=== PATIENT | male | born 1980 | race Caucasian/White ===

== ENCOUNTER 2020-07-16 03:32 | Outpatient (CLI) | payer MEDICAID, SELFPAY ==
--- NOTE | 2020-07-16 08:15 | RT.EKG_ITS ---
APPROVED REPORT Exam: Resting ECG Reason for Exam: High Risk Medication Patient Location: O HR:69 bpm ECG Measurements Heart Rate 69 AXIS [place] 143 P 57 QRSd 96 QRS 67 QT 410 T 42 QTc 439 Conclusion Sinus rhythm...normal P axis, V-rate 60- 99. Early repol pattern
== END 2020-07-16 03:33 | disposition home or self-care (01) ==
LOC: RT 03:32
PROVIDERS: PCP Internal Medicine; Visit Provider Family Medicine
DX: Z79.899 Other long term (current) drug therapy (principal)
CPT/HCPCS: 93005; 93010

== ENCOUNTER 2020-10-08 04:10 | Outpatient (CLI) | payer MEDICAID, SELFPAY ==
--- NOTE | 2020-10-08 09:30 | RT.EKG_ITS ---
APPROVED REPORT Exam: Resting ECG Reason for Exam: HIGH RISK MEDICATION Patient Location: O HR:70 bpm ECG Measurements Heart Rate 70 AXIS [place] 133 P 41 QRSd 96 QRS 46 QT 405 T 26 QTc 440 Conclusion Sinus rhythm...normal P axis, V-rate 60- 99 Ventricular premature complex...V complex w/ short R-R interval
== END 2020-10-08 04:11 | disposition home or self-care (01) ==
LOC: RT 04:10
PROVIDERS: PCP Internal Medicine; Visit Provider Family Medicine
DX: Z79.899 Other long term (current) drug therapy (principal); I49.3 Ventricular premature depolarization
CPT/HCPCS: 93005; 93010

== ENCOUNTER 2022-12-03 13:38 | Outpatient (REF) | payer MEDICAID, SELFPAY | END 2022-12-03 13:39 | disposition home or self-care (01) | LOC: LBN 13:38 | PROVIDERS: PCP Internal Medicine; Visit Provider Physician Assistant Medical | DX: L03.818 Cellulitis of other sites (principal) | CPT/HCPCS: 87070; 87205 ==

== ENCOUNTER 2023-09-05 16:22 | Emergency (ER) | payer MEDICAID, SELFPAY ==
[2023-09-05] VITALS (9 sets, daily range): BP systolic 143–190; BP diastolic 86–100; PULSE 64–86; RESP 8–198; TEMP 36.5–37.1; O2SAT 95–99
--- NOTE | 2023-09-05 16:15 | RT.EKG_ITS ---
APPROVED REPORT Exam: Resting ECG Reason for Exam: SOB Patient Location: E HR:87 bpm ECG Measurements Heart Rate 87 AXIS [place] 129 P 57 QRSd 89 QRS 70 QT 391 T 45 QTc 470 Conclusion Sinus rhythm 87 +PVCS
[2023-09-05] MEDS: Normal Saline 1,000 ML 1000 ML IV (17:34)
[2023-09-05 17:38] LABS: Abs Immature Grans 0.01 10^3/uL (0.0-0.06); Absolute Basophil Count 0.06 10^3/uL (0.0-0.2); Absolute Eosinophil Count 0.16 10^3/uL (0.0-0.7); Absolute Lymphocyte Count 2.27 10^3/uL (1.2-3.4); Absolute Monocyte Count 0.58 10^3/uL (0.1-0.8); Absolute Neutrophil Count 3.29 10^3/uL (1.2-6.7); Basophils % 0.9 %; Eosinophils % 2.5 %; HCT 42.5 % (40.0-50.0); HGB 14.6 g/dL (13.5-17.5); Immature Grans % 0.2 %; Lymphocytes % 35.6 %; MCH 29.3 pg (27.0-33.0); MCHC 34.4 % (32.0-36.0); MCV 85 fL (80-95); MPV 9.5 fL (8.0-11.0); Monocytes % 9.1 %; Neutrophils % 51.7 %; Platelet Count 280 10^3/uL (130-400); RBC 4.99 10^6/uL (4.36-5.78); RDW 13.1 % (11.8-14.1); RDW-SD 40.4 fL; WBC 6.37 10^3/uL (4.4-10.8)
[2023-09-05 17:56] LABS: ALT 33 U/L (16-63); AST 19 U/L (15-37); Albumin 3.8 g/dL (3.4-5.0); Alkaline Phosphatase 72 U/L (46-116); Anion Gap 5.4 mmol/L (3-11); BUN 17 mg/dL (7-18); Bilirubin, Total 0.34 mg/dL (0.2-1.0); CO2 31.6 mmol/L (21.0-32.0); Calcium 9.2 mg/dL (8.5-10.1); Chloride 102 mmol/L (98-107); Estimated GFR 96.97 (mL/min/1.73m2); Glucose 99 mg/dL (74-106); Magnesium 1.9 mg/dL (1.8-2.4); Potassium 4.2 mmol/L (3.5-5.1); Sodium 139 mmol/L (136-145); Total Protein 7.2 g/dL (6.4-8.2); Troponin I < 50 ng/L (< or =60)
[2023-09-05 18:02] LABS: Creatine Kinase 184 U/L (39-308); NT-proBNP 31 pg/mL (<300)
--- NOTE | 2023-09-05 18:45 | RT.EKG_ITS ---
APPROVED REPORT Exam: Resting ECG Reason for Exam: SOB Patient Location: E HR:68 bpm ECG Measurements Heart Rate 68 AXIS [place] 147 P 55 QRSd 91 QRS 70 QT 412 T 47 QTc 440 Conclusion Sinus rhythm 68 no stemi
[2023-09-05 18:51] LABS: Bilirubin Negative (Negative); Blood Negative (Negative); Clarity Clear (Clear); Glucose Negative (Negative); Ketones Trace mg/dL (Negative); Leukocyte Esterase Negative (Negative); Nitrite Negative (Negative); pH 6.5 (5-8)
[2023-09-05 19:05] LABS: *AMPHETAMINES SCREEN URINE Negative (Negative); *BARBITURATES SCREEN URINE Negative (Negative); *BENZODIAZEPINES SCREEN URINE Negative (Negative); Cannabinoids THC Positive (Negative); Cocaine Screen,Urine Positive (Negative); METHADONE URINE SCREEN Negative (Negative); OPIATES URINE SCREEN Negative (Negative)
[2023-09-05 19:10] LABS: Tricyclic Antidepressants Negative (Negative)
--- NOTE | 2023-09-05 20:51 | ED.GENADUL_ITS ---
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 Limitations to Documentation: no limitations . Information obtained by: patient . HPI Narrative: 43-year-old gentleman without known past medical history presents for evaluation of shortness of breath. The patient reports that he has been working outside on a roof all week and has been very hot. He states that he gets some shortness of breath. No chest pain. He states that he has also been having some intermittent vomiting. He reports that the symptoms seem to occur at nighttime. No exacerbating or relieving factors. He denies that he gets short of breath or has chest pain while he is doing exertional activity. He does smoke. Denies any history of heart or lung problems. Denies any drug or alcohol use. Related Data Home Medications Medication Instructions Recorded Confirmed Unknown [No Known Home Meds] 09/05/23 09/05/23 Allergies Allergy/AdvReac Type Severity Reaction Status Date / Time No Known Allergies Allergy Unverified 09/05/23 16:27 General Stated Complaint: SOB JULEE: 3 Exam Narrative Exam Narrative: Review of Systems: All systems reviewed & are unremarkable except as noted in HPI and below Well-developed, no acute distress NCAT PERRL, normal conjunctiva Dry mucous membranes RRR, no murmur hypertensive Unlabored respiratory effort clear bilaterally not tachypneic not hypoxic Nondistended abdomen Extremities w/o deformity, no cyanosis, no edema Sunburn on back noted no focal neurologic deficits Appropriate mood and affect Course Vital Signs Vital signs: Vital Signs Temperature 36.5 C 09/05/23 16:24 Pulse 86 09/05/23 16:24 Respiratory Rate 18 09/05/23 16:24 Blood Pressure 190/100 H 09/05/23 16:24 Pulse Oximetry 99 09/05/23 16:24 Temperature 37.0 C 09/05/23 18:43 Temperature Source Tympanic 09/05/23 18:43 Pulse 64 09/05/23 19:37 Pulse 75 09/05/23 17:16 Respiratory Rate 18 09/05/23 19:37 Respiratory Effort Normal, Non-Labored 09/05/23 17:05 Respiratory Depth Normal 09/05/23 17:05 Respiratory Pattern Normal 09/05/23 17:05 Blood Pressure 156/88 H 09/05/23 19:37 Blood Pressure Mean 105 09/05/23 19:20 Blood Pressure Position Supine 09/05/23 17:10 Pulse Oximetry 97 09/05/23 19:37 Oxygen Delivery Method Room Air 09/05/23 18:43 Oxygen Flow Rate 0 09/05/23 18:43 Pain Level 0 09/05/23 19:37 Lab/Test Results Lab/Test Results: Laboratory Tests Range/Units 09/05/23 09/05/23 17:30 18:30 WBC (4.4-10.8) 10^3/uL 6.37 RBC (4.36-5.78) 10^6/uL 4.99 Hgb (13.5-17.5) g/dL 14.6 Hct (40.0-50.0) % 42.5 MCV (80-95) fL 85 MCH (27.0-33.0) pg 29.3 MCHC (32.0-36.0) % 34.4 RDW (11.8-14.1) % 13.1 Plt Count (130-400) 10^3/uL 280 MPV (8.0-11.0) fL 9.5 Immature Gran % % 0.2 Neutrophils % % 51.7 Lymphocytes % % 35.6 Monocytes % % 9.1 Eosinophils % % 2.5 Basophils % % 0.9 Nucleated RBC % (0.0-0.3) % 0.0 Absolute Neutrophils (1.2-6.7) 10^3/uL 3.29 Absolute Lymphocytes (1.2-3.4) 10^3/uL 2.27 Absolute Monocytes (0.1-0.8) 10^3/uL 0.58 Absolute Eosinophils (0.0-0.7) 10^3/uL 0.16 Absolute Basophils (0.0-0.2) 10^3/uL 0.06 Sodium (136-145) mmol/L 139 Potassium (3.5-5.1) mmol/L 4.2 Chloride (98-107) mmol/L 102 Carbon Dioxide (21.0-32.0) mmol/L 31.6 Anion Gap (3-11) mmol/L 5.4 BUN (7-18) mg/dL 17 Creatinine (0.70-1.30) mg/dL 1.0 Est GFR (CKD-EPI 2020) (mL/min/1.73m2) 96.97 Glucose (74-106) mg/dL 99 Calcium (8.5-10.1) mg/dL 9.2 Magnesium (1.8-2.4) mg/dL 1.9 Total Bilirubin (0.2-1.0) mg/dL 0.34 AST (15-37) U/L 19 ALT (16-63) U/L 33 Alkaline Phosphatase (46-116) U/L 72 Creatine Kinase (39-308) U/L 184 Troponin I (< or =60) ng/L < 50 NT-Pro-B Natriuret Pep (<300) pg/mL 31 Total Protein (6.4-8.2) g/dL 7.2 Albumin (3.4-5.0) g/dL 3.8 Urine Color (Yellow) Yellow Urine Clarity (Clear) Clear Urine pH (5-8) 6.5 Ur Specific Benedict (1.005-1.025) 1.020 Urine Protein (Neg-Trace) mg/dL Trace Urine Ketones (Negative) mg/dL Trace H Urine Blood (Negative) Negative Urine Nitrite (Negative) Negative Urine Bilirubin (Negative) Negative Urine Urobilinogen (Up to 0.2) mg/dL 1.0 H Ur Leukocyte Esterase (Negative) Negative Urine Glucose (Negative) mg/dL Negative Urine Opiates Screen (Negative) Negative Urine Methadone Screen (Negative) Negative Ur Barbiturates Screen (Negative) Negative Ur Tricyclics Screen (Negative) Negative Ur Amphetamines Screen (Negative) Negative U Benzodiazepines Scrn (Negative) Negative Urine Cocaine Screen (Negative) Positive A Ur THC Screen (Negative) Positive A Medical Decision Making Emergent evaluation of shortness of breath. Patient reports that he has been having significant heat exposure this week. On arrival, he is hypertensive but otherwise hemodynamically stable with no signs of respiratory distress. He is EKG does demonstrate significant amount of PVCs. He seems to be asymptomatic from these. Though his symptoms may be shortness of breath. Plan for telemetry monitoring and lab work, will give fluid resuscitation due to likely dehydration from outdoor activity and will reassess. Lab work reviewed. No anemia, no leukocytosis. Platelet count is normal. Electrolytes without derangement. Renal function is normal. His cardiac biomarkers are unremarkable. His urinalysis does reveal trace ketones and he has been resuscitated with IV fluids. His drug screen is positive for cocaine and THC. I suspect that the cocaine may have something to do with his PVCs or his concerns of shortness of breath. The patient is feeling much better after IV fluid resuscitation. He has no shortness of breath here, no concerning examination findings and at this time he is discharged in good condition. It is recommended that he follow-up with PCP for recheck of his blood pressure which is noted to be elevated here. Return precautions advised, discharged in good condition. Medical Records Medical records reviewed: Yes I reviewed the patient's medical records. Lab Data Lab results reviewed: Yes I reviewed the patient's lab results. Quality:SDOH Health Related Social Needs: No Data to Display [facility] All Active Problems Heat exposure (Acute) Elevated blood pressure reading (Acute) Acute dehydration (Acute) Asymptomatic PVCs (Acute) Social History Smoking/Tobacco Use Status: Current every day Tobacco Type: cigarettes Smoking risk assessment performed?: Yes Alcohol Intake: never Drug use: Occasionally Substance use type: marijuana Housing: apartment Do you feel safe in your relationship?: Yes
== END 2023-09-05 20:51 | disposition home or self-care (01) ==
PROVIDERS: Emergency Provider Emergency Medicine; PCP Nurse Practitioner Family
DX: I49.3 Ventricular premature depolarization (principal); E86.0 Dehydration; R03.0 Elevated blood-pressure reading, without diagnosis of hypertension; F17.210 Nicotine dependence, cigarettes, uncomplicated
CPT/HCPCS: 36415; 80053; 80307; 82550; 93005; 99284; 81003; 83735; 83880; 84484; 85025; 93010; 99283

== ENCOUNTER 2024-01-19 01:36 | Outpatient (CLI) | payer MEDICAID, SELFPAY ==
--- NOTE | 2024-01-19 08:54 | DI.CT_ITS ---
Exam(s) CT LOWER EXTREMITY LT WO EXAM: CT LOWER EXTREMITY LT WO CLINICAL HISTORY: Abnl growth, lt ankle. TECHNIQUE: Imaging Protocol: Axial computed tomography images with coronal and sagittal reformatted images were created and reviewed. CONTRAST MATERIAL: Intravenous: Omnipaque 350 Contrast volume:structured data in ml Contrast route:I V - Oral: yes / no COMPARISON: No exams were available for comparison FINDINGS: OSSEOUS: There are no fractures nor widening the ankle mortise. No degenerative cysts nor osteochondral defec t in the talar dome. No evidence of osseous tarsal coalition. Os trigonum is noted. SOFT TISSUES: On the medial aspect of the ankle there is subcutaneous and partially cutaneous density just superfic ial to the tibialis posterior tendon which measures approximately 5 x 4 mm and is immediately subjace nt to the skin marker above this level. Does not exhibit internal calcification. There does not hollie ear to be subjacent tenosynovitis in the posterior tibial tendon nor in the flexor digitorum longus t endon. IMPRESSION: 1. No significant osseous findings in the ankle 2. There is a superficially located 5 x 4 mm soft tissue nodule in the medial aspect of the ankle exa ctly corresponding to the palpable finding in this patient. The appearance is nonspecific on CT scan . Recommend follow-up MRI scan for added specificity. RADIATION DOSE DELIVERED: 88.62mGy.cm Total DLP DATA REPOSITORY: All CT scans at this facility are submitted to the National Radiology Data Registry (NRDR) Dose Index Registry (DIR) with the [employer] (A[employer]). RADIATION OPTIMIZATION: All CT scans at this facility use at least one of these dose optimization te chniques: automated exposure control; mA and/or kV adjustment per patient size (includes targeted exa ms where dose is matched to clinical indication); or iterative reconstruction.
== END 2024-01-19 01:56 ==
LOC: DI 01:37
PROVIDERS: PCP Nurse Practitioner Family; Visit Provider Nurse Practitioner Family
DX: M76.822 Posterior tibial tendinitis, left leg (principal)
CPT/HCPCS: 73700

== ENCOUNTER 2024-07-21 14:06 | Outpatient (CLI) | payer MEDICAID, SELFPAY ==
--- NOTE | 2024-07-21 14:00 | RT.EKG_ITS ---
APPROVED REPORT Exam: Resting ECG Reason for Exam: high risk medication use Patient Location: O HR:50 bpm ECG Measurements Heart Rate 50 AXIS [place] 147 P 75 QRSd 96 QRS 75 QT 569 T 61 QTc 519 Conclusion Sinus rhythm...normal P axis, V-rate 50- 99 Prolonged QT interval...QTc >500mS
== END 2024-07-21 14:07 | disposition home or self-care (01) ==
LOC: CARDOPNVT 14:06
PROVIDERS: PCP Nurse Practitioner Family; Visit Provider Family Medicine
DX: Z79.899 Other long term (current) drug therapy (principal)
CPT/HCPCS: 93005; 93010

== ENCOUNTER 2024-07-27 11:28 | Emergency (ER) | payer MEDICAID, SELFPAY ==
--- NOTE | 2024-07-27 11:30 | RT.EKG_ITS ---
APPROVED REPORT Exam: Resting ECG Reason for Exam: sent by JANA for EKG Patient Location: E HR:61 bpm ECG Measurements Heart Rate 61 AXIS [place] 143 P 61 QRSd 94 QRS 73 QT 447 T 56 QTc 450 Conclusion Sinus rhythm...normal P axis, V-rate 60- 99 No Occlusion MA
[2024-07-27 11:34] VITALS: BP 153/99; PULSE 72; RESP 20; TEMP 36.9; O2SAT 94
[2024-07-27 11:55] VITALS: BP 153/99; PULSE 72; RESP 20; TEMP 36.9; O2SAT 94
--- NOTE | 2024-07-28 12:43 | ED.GENADUL_ITS ---
Discharge Plan Disposition Patient Disposition: Home Discharge Details Clinical Impression: Methadone maintenance therapy patient, Abnormal ECG Primary Care Provider: Renetta Strange ED Provider: Yesica Pitts Home Meds and New Rx's Prescriptions: No Action No Known Home Meds Discharge Instructions Additional Instructions: EKG from last week was abnormal, that abnormality is no longer present Based on your EKG in the emergency department you are safe to continue receiving your methadone at time of this assessment please follow-up with them and have routine EKG monitoring at their discretion Referrals: Renetta Strange [Primary Care Provider] - 1 week Discharge Data Discharge Date/Time-TO BE ENTERED AT DEPARTURE: 07/27/24 11:57 HPI General Date/Time Provider Initiated Documentation: 07/27/24 11:40 . 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 Advised by methadone center to visit clinic today after receiving methadone dose. Related Data Home Medications ?Medication ?Instructions ?Recorded ?Confirmed Unknown [No Known Home Meds] 09/05/23 09/05/23 Allergies Allergy/AdvReac Type Severity Reaction Status Date / Time No Known Allergies Allergy Unverified 09/05/23 16:27 General Stated Complaint: Recheck JULEE: 3 Exam Narrative Exam Narrative: General Appearance: Alert, oriented, in no acute distress. Vital signs: Stable vitals. HEENT: Within normal limits. Respiratory: Within normal limits. Skin: Warm and dry, no rash. Neurological: Normal. Course Vital Signs Vital signs: Vital Signs Temperature 36.9 C 07/27/24 11:34 Pulse 72 07/27/24 11:34 Respiratory Rate 20 07/27/24 11:34 Blood Pressure 153/99 H 07/27/24 11:34 Pulse Oximetry 94 07/27/24 11:34 Temperature 36.9 C 07/27/24 11:55 Pulse 72 07/27/24 11:55 Respiratory Rate 20 07/27/24 11:55 Blood Pressure 153/99 H 07/27/24 11:55 Blood Pressure Position Sitting 07/27/24 11:34 Pulse Oximetry 94 07/27/24 11:55 Oxygen Delivery Method Room Air 07/27/24 11:34 Oxygen Flow Rate 0 07/27/24 11:34 Medical Decision Making EKG from Wednesday: QTc 560. EKG today: QTc 430-450. Initial Assessment: 44-year-old male with history of methadone dependence presents with report of abnormal EKG on Wednesday. Patient is alert, oriented, in no acute distress with stable vitals. ED Course: - Reviewed EKG from Wednesday: QTc prolongation at 560 - Repeat EKG today: QTc 430-450 - No indication to check labs or do any additional diagnostics - Patient discharged home - Encouraged to follow up with methadone clinic with routine EKGs per recommendations - Return precautions reviewed; patient expressed understanding Final Assessment: Reviewed EKGs showing QTc prolongation, no additional labs or diagnostics indicated, patient discharged with follow-up instructions. Clinical Impression: - Methadone dependence - QTc prolongation Disposition: - Discharge - Follow-Up: Follow up with methadone clinic for routine EKGs MDM Components Evaluation: - Number of Differential Diagnoses or Management Options: Methadone dependence, QTc prolongation - Amount and Complexity of Data Reviewed: EKG from Wednesday, repeat EKG today - Risk of Complication and Morbidity or Mortality: QTc prolongation risk managed with follow-up instructions Quality:SDOH Health Related Social Needs: No Data to Display PFSH All Active Problems (Updated 07/27/24 @ 11:51 by MOMO Fleming) Abnormal ECG (Acute) Methadone maintenance therapy patient (Acute) Social History Smoking/Tobacco Use Status: Current every day Tobacco Type: cigarettes Smoking risk assessment performed?: Yes Alcohol Intake: never Drug use: Occasionally Substance use type: marijuana Housing: apartment Do you feel safe in your relationship?: Yes PAWSS Have you Been Recently Intoxicated or Drunk Within the Last 30 days?: No Have you Ever Experienced Previous Episodes of Alcohol Withdrawal?: No Have you ever Experienced Withdrawal Seizures?: No Have you ever Experienced Delirium Tremens(DT)s?: No Have you ever undergone Alcohol Rehabilitation Treatment (i.e, inpt ot outpatient treatment programs)?: No Have you ever Experienced Blackouts?: No Have you ever Combined Alcohol with other Downers within the last 90 days?: No Have you ever Combined Alcohol with any other Substance of Abuse during the last 90 days?: No Positive Blood Alcohol level on Presentation? [PCS.BAL]: No Evidence of Increased Autonomic Activity (i.e. HR>120, tremor, sweating, agitation, nausea)?: No Result: 0
== END 2024-07-27 11:57 | disposition home or self-care (01) ==
PROVIDERS: Emergency Provider Physician Assistant; PCP Nurse Practitioner Family
DX: R94.31 Abnormal electrocardiogram [ECG] [EKG] (principal); R00.2 Palpitations; F11.20 Opioid dependence, uncomplicated; F17.210 Nicotine dependence, cigarettes, uncomplicated
CPT/HCPCS: 93005; 99283; 93010

== ENCOUNTER 2024-08-21 02:22 | Outpatient (CLI) | payer MEDICAID, SELFPAY ==
--- NOTE | 2024-08-21 | DI.MRI_ITS ---
Exam(s) MR LOWER JOINT LT WO EXAM: MR LOWER JOINT LT WO CLINICAL HISTORY: ABNL Growth, lt Ankle, CT done 01/18, TECHNIQUE: Multiplanar multisequence MRI was performed without intravenous contrast. COMPARISON: CT CT LOWER EXTREMITY LT WO from 01/19/2024 FINDINGS: The examination is limited due to patient motion artifact. BONES/JOINTS: No fracture or contusion pattern. No bone lesions identified. The talar dome is smooth. The ankle mortise is maintained. No joint effusion is present. LIGAMENTS: The tibiofibular and calcaneofibular ligaments are intact. The talofibular ligaments are intact. The deltoid ligament is intact. The syndesmosis is unremarkable. Sinus tarsi is normal. MUSCULOTENDINOUS STRUCTURES: Achilles tendon: Unremarkable. Plantar fascia: Unremarkable. Anterior Extensor tendons: Unremarkable. Posterior Tibialis: Unremarkable. Flexor Digitorum longus: Unremarkable. Flexor Hallucis longus: Unremarkable. Peroneus longus: Unremarkable. Peroneus brevis:Unremarkable. SOFT TISSUES: There is a 6 x 4 mm nodule medial to the medial malleolus corresponding to the palpable abnormality. (Series 9001, image 22). It is cutaneous/subcutaneous in location. It is independent of the underlying bone and musculotendinous structures. It is isointense to muscle on T1 weighted images and hyperintense on the T2 weighted images (series 7001, image 23). The soft tissues are otherwise unremarkable. OTHER FINDINGS: There is hyperintense signal seen posterior to the talus adjacent to the posterior talofibular ligament. There is normal signal seen within the os trigonum and the posterior talus. The fluid does surround the os trigonum. Os trigonum syndrome can be considered in the appropriate clinical setting and patient's symptoms. IMPRESSION: 1. 6 x 4 mm soft tissue nodule in the soft tissues medial to the medial malleolus. There is no associated abnormality with the adjacent musculotendinous structure or underlying bone. The finding has benign characteristics and may represent a small sebaceous cyst or other benign cystic lesion. DATA REPOSITORY:
== END 2024-08-21 02:42 ==
LOC: DI 02:22
PROVIDERS: PCP Nurse Practitioner Family; Visit Provider Nurse Practitioner Family
DX: M79.89 Other specified soft tissue disorders (principal)
CPT/HCPCS: 73721

== ENCOUNTER 2024-09-22 00:52 | Outpatient (CLI) | payer MEDICAID, SELFPAY ==
[2024-09-22 10:57] LABS: Abs Immature Grans 0.01 10^3/uL (0.0-0.06); HCT 43.2 % (40.0-50.0); HGB 14.9 g/dL (13.5-17.5); Immature Grans % 0.2 %; MCH 30.1 pg (27.0-33.0); MCHC 34.5 % (32.0-36.0); MCV 87 fL (80-95); MPV 9.6 fL (8.0-11.0); Platelet Count 321 10^3/uL (130-400); RBC 4.95 10^6/uL (4.36-5.78); RDW 13.1 % (11.8-14.1); RDW-SD 41.3 fL; WBC 6.09 10^3/uL (4.4-10.8)
[2024-09-22 11:57] LABS: Hemoglobin A1C 5.4 % (<5.7)
[2024-09-22 12:07] LABS: ALT 29 U/L (16-63); AST 21 U/L (15-37); Albumin 3.9 g/dL (3.4-5.0); Alkaline Phosphatase 86 U/L (46-116); Anion Gap 10.2 mmol/L (3-11); BUN 30 mg/dL (7-18); Bilirubin, Total 0.5 mg/dL (0.2-1.0); CO2 25.8 mmol/L (21.0-32.0); Calcium 9.4 mg/dL (8.5-10.1); Calculated LDL 173 mg/dL (<100); Chloride 103 mmol/L (98-107); Cholesterol 248 mg/dL (<200); Estimated GFR 113.32 (mL/min/1.73m2); Glucose 96 mg/dL (74-106); HDL Cholesterol 58 mg/dL (>or=40); Potassium 3.9 mmol/L (3.5-5.1); Sodium 139 mmol/L (136-145); TSH 2.59 uIU/mL (0.36-3.74); Total Protein 7.6 g/dL (6.4-8.2); Triglyceride 85 mg/dL (<150)
[2024-09-22 12:18] LABS: Amylase 39 U/L (25-115); Lipase 24 U/L (<78)
== END 2024-09-22 00:53 | disposition home or self-care (01) ==
PROVIDERS: PCP Nurse Practitioner Family; Visit Provider Nurse Practitioner Family
DX: R42 Dizziness and giddiness (principal); R10.12 Left upper quadrant pain
CPT/HCPCS: 36415; 80053; 80061; 83690; 82150; 83036; 84443; 85025

== ENCOUNTER 2024-09-25 02:31 | Outpatient (CLI) | payer MEDICAID, SELFPAY ==
--- NOTE | 2024-09-25 | DI.US_ITS ---
Exam(s) US ABDOMEN LIMITED EXAM: US ABDOMEN LIMITED CLINICAL HISTORY: LUQ abd pain, R10.12; Evaluate gallbladder TECHNIQUE: Ultrasound abdomen performed using standard protocol. COMPARISON: No exams were available for comparison FINDINGS: There is no ascites evident. LIVER: There are no hepatic lesions evident nor dilatation of intrahepatic ducts. GALLBLADDER/BILIARY: There are no gallstones. No gallbladder wall edema nor pericholecystic fluid. The common hepatic duct isnot dilated, measuring 4mm at the level of jojo hepatis. PANCREAS: There is no evidence of pancreatic mass nor dilatation of the pancreatic duct. RIGHT KIDNEY:No evidence of solid mass, calculus, nor hydronephrosis. No cortical cysts evident. IMPRESSION: 1. No evidence of cholelithiasis nor dilatation of the biliary tree. 2. No other significant ultrasound findings in the right upper quadrant. 3. There is no ascites. Apparently the patient in informed the technologist that he also had pain on left side below the ribcage. Scanning of this immediate region did not reveal obvious abnormality. Please note that the left kidney and spleen were not imaged as this was ordered as a right upper quadrant ultrasound. If clinically indicated further study with CT scan can be performed DATA REPOSITORY:
== END 2024-09-25 02:51 ==
PROVIDERS: PCP Nurse Practitioner Family; Visit Provider Nurse Practitioner Family
DX: R10.12 Left upper quadrant pain (principal)
CPT/HCPCS: 76705